=== PATIENT | female | born 1995 | race Caucasian/White ===

== ENCOUNTER 2023-10-18 07:24 | Emergency (ER) | payer BC, SELFPAY ==
[2023-10-18] VITALS (9 sets, daily range): BP systolic 114–131; BP diastolic 75–89; PULSE 88–115; RESP 20; TEMP 36.9; O2SAT 99–100
--- NOTE | ~2023-10-18 | US_ITS ---
EXAMINATION: US pelvic complete w TV DATE: 10/18/2023 09:02 INDICATION: Persistent bleeding with clots post medical 1 month prior. TECHNIQUE: Multiple transabdominal and endovaginal sonographic images of the pelvis were obtained. COMPARISON: None. FINDINGS: The uterus measures 8.7 x 3.8 x 4.6 cm. The endometrial complex measures up to 1.4 cm in thickness w ith heterogeneous mixed echogenicity. On color Doppler there is a vascularity within the myometrium a t the anterior fundus which appears to extend into the echogenic material within the endometrial comp joshua consistent with retained products of conception. There is a large amount of echogenic material wi thin the endocervical canal on the transabdominal imaging which appears decreased on the subsequent e ndovaginal imaging with the patient reportedly having passed a clot in the interval between the trans abdominal and transvaginal imaging. The right ovary measures 3.3 x 1.8 x 1.9 cm. 1.7 cm thick-walled likely corpus luteum cyst in the rig ht ovary. The left ovary measures 3.2 x 1.6 x 1.4 cm. With a few additional subcentimeter anechoic fo llicles. There is normal vascular flow in the ovaries. There is a minimal amount of anechoic free flu id in the cul-de-sac. IMPRESSION: 1. Thickened endometrial complex containing echogenic material with internal vascular flow on color D oppler contiguous with a hypervascular region in the myometrium of the anterior fundus consistent wit h retained products of conception. Reviewed, dictated and finalized at location B. [facility] MAN IMPRESSION: 1. Thickened endometrial complex containing echogenic material with internal va scular flow on color Doppler contiguous with a hypervascular region in the myom etrium of the anterior fundus consistent with retained products of conception.
--- NOTE | 2023-10-18 07:40 | ED.ABDPAIN ---
HPI - Abdominal Pain General Chief Complaint: Vaginal Bleeding Stated Complaint: Vag bleeding Time Seen by Provider: 10/18/23 07:32 History of Present Illness HPI narrative: 28-year-old female presenting to the emergency department for evaluation of heavy vaginal bleeding. Patient reports that she did have a medical approximately 1 month ago. The patient did restart control. Patient states she did have a large clot that was passed few days ago and the bleeding improved. Patient states that this morning she had re-initiation of the vaginal bleeding has been bleeding through multiple pads today. Patient does report some lower abdominal cramping but denies any significant discomfort. Patient declined any medications for pain control. [facility] August [facility]. Patient states she has had intermittent bleeding since then but the bleeding significantly increased today. Related Data Allergies Allergy/AdvReac Type Severity Reaction Status Date / Time No Known Allergies Allergy Verified 10/18/23 07:56 Review of Systems Review of Systems: All systems reviewed & are unremarkable except as noted in HPI and below Exam Narrative: APPEARANCE: Well appearing, no pain, no distress, well-nourished. HEAD: normocephalic, atraumatic. EYES: PERRLA/EOMI, conjunctivae clear. NOSE: Normal no drainage EARS:TMS clear with good light reflex. THROAT: Pharynx clear, no exudate. NECK: Supple. No adenopathy, no masses. RESPIRATORY: Airway patent, respirations nonlabored. Clear to auscultation bilaterally, no rales, rhonchi, wheezing. CARDIOVASCULAR: Regular rate and rhythm without murmurs rubs or gallops. ABDOMINAL: Soft, nontender, nondistended, normal bowel sounds MUSCULOSKELETAL: Moves all extremities. Strength/ROM intact, No edema, No calf tenderness. NEURO: Alert. Cranial nerves II through XII intact. Grossly intact SKIN: Warm, dry. Normal Color Course Course Emergency Course: 28-year-old female present to the ED for evaluation of vaginal bleeding. Ultrasound showed retained products of conception. Patient declined the D&C preferred her try Cytotec. Patient will have close follow-up with Dr. Vani Kline. Vital Signs Vital signs: Vital Signs Temperature 98.4 F 10/18/23 07:36 Pulse Rate 115 H 10/18/23 07:36 Respiratory Rate 20 10/18/23 07:36 Blood Pressure 131/88 10/18/23 07:36 Pulse Oximetry 100 10/18/23 07:36 Oxygen Delivery Room Air 10/18/23 07:36 Temperature 98.4 F 10/18/23 07:36 Pulse Rate 88 10/18/23 10:56 Respiratory Rate 20 10/18/23 10:56 Blood Pressure 124/89 10/18/23 10:16 Pulse Oximetry 99 10/18/23 10:56 Oxygen Delivery Room Air 10/18/23 07:36 MDM - Abdominal Pain MDM Narrative Medical decision making narrative: 28-year-old female presents to the emergency department for evaluation of vaginal bleeding. Ultrasound was ordered to evaluate for retained products of conception. At time of re-evaluation patient states she is still having vaginal bleeding heavier than her typical heavy menstrual cycle. Ultrasound was concerning for retained products of conception. Type and screen was ordered. Patient was treated with IV fluids and OB was consulted. Ob felt the patient was stable for either outpatient Cytotec versus a D&C today. She left the decision up to the patient the patient prefers to be discharged and try the sinus tach. Patient was updated on reasons to return to the emergency department. All questions concerns were addressed and patient was comfortable with plan for discharge and close follow-up. Differential Diagnosis Differential diagnosis: Likely abdominal pain, calculus of kidney, constipation, diverticulitis, endometriosis, gastroenteritis, pancreatitis and small bowel obstruction Lab Data Attestation: I reviewed the patient's lab results. 10/18/23 07:54 10/18/23 07:
[2023-10-18] MEDS: SODIUM CHLORIDE 0.9% IV 1,000 ML 999 ML IV CONT ×2 (07:55→10:16)
[2023-10-18 08:09] LABS: Basophils Percent Auto 0.7 % (0.2-1.2); Eosinophils Percent Auto 0.7 % (0-4.4); Hematocrit 41.7 % (37.0-47.0); Hemoglobin 13.3 g/dL (12.0-15.0); Immature Granulocyte Absolute 0.01 K/mm3 (0.00-0.031); Immature Granulocyte Percent A 0.2 % (0-0.5); Lymphocytes Absolute Auto 0.81 K/mm3 (0.9-3.2); Lymphocytes Percent Auto 19.6 % (18.3-44.2); Mean Corpuscular HGB Conc 31.9 g/dl (32-36); Mean Corpuscular Hemoglobin 28.5 pg (26-34); Mean Corpuscular Volume 89.5 fl (80-100); Mean Platelet Volume 10.8 fl (7.4-10.4); Monocytes Absolute Auto 0.4 K/mm3 (0.1-0.6); Monocytes Percent Auto 10.1 % (2.6-8.5); Neutrophils Absolute Auto 2.8 K/mm3 (1.3-6.7); Neutrophils Percent Auto 68.7 % (45.5-73.1); Platelet Count Result 256 k/mm3 (150-375); Red Blood Count 4.66 M/mm3 (4.2-5.4); Red Cell Distribution Width 13.4 % (11.5-14.5); White Blood Count 4.1 K/mm3 (4.5-10.0)
[2023-10-18 08:19] LABS: Alanine Aminotransferase 23 U/L (6-35); Albumin Level 4.7 g/dL (3.5-5.1); Alkaline Phosphatase 46 U/L (38-126); Anion Gap 11 mmol/L (8-16); Aspartate Amino Transferase 28 U/L (14-36); Bilirubin,Total 0.3 mg/dL (0.2-1.3); Blood Urea Nitrogen 9 mg/dL (7-17); Calcium 9.3 mg/dL (8.4-10.2); Carbon Dioxide 21 mmol/L (22-30); Chloride 106 mmol/L (98-107); Estimated CRCL calculation 94 ml/min; Estimated Glomerular Filt Rate > 60; Glucose 98 mg/dL (65-110); Sodium 138 mmol/L (137-145)
[2023-10-18 08:28] LABS: Bacteria Urine None Seen /hpf; Need Manual Microscopic Reviewed; Non Pathogenic Casts 0-2; RBC Urine >100 /hpf (0-2); Squamous Epithelial Cell Urine None seen /hpf (Few)
[2023-10-18 08:29] LABS: Prothrombin Time 13.5 Seconds (11.1-14.7)
[2023-10-18 08:30] LABS: Appearance Urine Cloudy (Clear); Bilirubin Urine 2+ (Negative); Color Urine Red (Yellow); Glucose Urine UA Negative (Negative); Ketones Urine Negative (Negative); Partial Thromboplastin Time 33.2 SECONDS (22.3-36.8); Urobilinogen Urine 0.2 mg/dL (<2.0)
[2023-10-18 08:32] LABS: Nitrate Urine Unable to determine (Negative)
[2023-10-18 08:33] LABS: Blood Urine 4+ (Negative); Leukocyte Esterase Ur Unable to determine LEU/UL (Negative); Protein Urine Unable to determine mg/dL (Negative)
[2023-10-18 08:34] LABS: Add Urine Microscopic? YES
== END 2023-10-18 10:57 | disposition home or self-care (01) ==
PROVIDERS: Emergency Provider Emergency Medicine
DX: O03.4 Incomplete spontaneous abortion without complication (principal)
CPT/HCPCS: 36415; 76830; 76856; 80053; 81001; 81025; 85025; 85610; 85730; 86850; 86900; 86901; 87086; 99284; J7030